=== PATIENT | female | born 1960 | race Caucasian/White ===

== ENCOUNTER 2020-03-06 17:05 | Emergency (ER) | payer OTHER, SELFPAY ==
[~2020-03-06] VITALS: Ht 162.6 cm; Wt 70.3 kg
[2020-03-06 17:12] VITALS: BP 162/80
--- NOTE | 2020-03-06 17:15 | NUR ---
PT C/O DRY COUGH, SORE THROAT, AND CHEST CONGESTION FOR 2 DAYS. REPORTS DAUGHTER HAS BEEN DIAGNOSED WITH POSITIVE COVID ON 03/03/2020. DENIES FEVER, CHILLS, MUSCLE ACHES, N/V/D. LOW GRADE OF FEVER 99.9 UPON TRIAGE.
--- NOTE | 2020-03-06 17:23 | NUR ---
COVID-19 SWAB COLLECTED
[2020-03-06 18:07] VITALS: BP 162/80
--- NOTE | 2020-03-06 18:08 | NUR ---
Patient discharged with v/s stable. Written and verbal after care instructions given and explained. Patient alert, oriented and verbalized understanding of instructions. Ambulatory with steady gait. All questions addressed prior to discharge. ID band removed. Patient advised to follow up with PMD. Rx of ibuprofen/promethazine given. Patient educated on indication of medication including possible reaction and side effects. Opportunity to ask questions provided and answered.
--- NOTE | 2020-03-08 16:48 | NUR ---
COVID RESULTS RECEIVED FROM LAB. COVID RESULTS-POSITIVE . HARD COPY REQUESTED FROM LAB. COPY OF RESULT PLACED IN INFECTION CONTROL'S MAILBOX.
== END 2020-03-06 18:08 | disposition home or self-care (01) ==
LOC: EEVIPCON 17:05 → MED 17:05
DX: U07.1 COVID-19 (principal); B34.9 Viral infection, unspecified; R03.0 Elevated blood-pressure reading, without diagnosis of hypertension
CPT/HCPCS: 99283; U0003